=== PATIENT | male | born 1960 | race Caucasian/White ===

== ENCOUNTER 2016-05-13 20:10 | Emergency (ER) ==
[2016-05-13 20:25] VITALS: BP 156/85
--- NOTE | 2016-05-13 20:34 | PROVIDER DOCUMENTATION ---
HPI-Rash/Wound/ReCheck - General Chief Complaint: Suture/Staple Removal Stated Complaint: RECHECK, 05/04/16 Time Seen by Provider: 05/13/16 20:28 Source: patient Allergies/Adverse Reactions: Allergies Allergy/AdvReac Type Severity Reaction Status Date / Time No Known Allergies Allergy Verified 05/04/16 19:12 - History of Present Illness-Dermatology Nature of Presenting Problem: Pt presents today for recheck of finger laceration 5 days ago. Wound healing well. No signs or symptoms of infection. Context/Associated Symptoms: reports: laceration Similar Symptoms Previously?: Yes Recently seen or treated by another doctor?: Yes - Recheck Treated days ago.: 5 Previous Treatment: laceration repair Antibiotics given: prescription Symptoms since procedure:: reports: no complaints Review of Systems - Adult - REVIEW OF SYSTEMS - ADULT Constitutional: reports: no symptoms reported Eyes: reports: no symptoms reported Ears, Nose, Mouth & Throat: reports: no symptoms reported Cardiovascular: reports: no symptoms reported Respiratory: reports: no symptoms reported Gastrointestinal: reports: no symptoms reported Genitourinary: reports: no symptoms reported Musculoskeletal: reports: no symptoms reported Integumentary: reports: see HPI Neurological: reports: no symptoms reported Psychiatric: reports: no symptoms reported Endocrine: reports: no symptoms reported Hematologic/Lymphatic: reports: no symptoms reported Allergic/Immunologic: reports: no symptoms reported All Other Systems: Reviewed and Negative Past History - Adult - PAST MEDICAL HISTORY-ADULT Review of Records: reports: Old Records Reviewed, Nursing Assessment Review, Medications Reviewed, Social history reviewed & non-contributory. Major Childhood Illnesses: reports: denies history Cardiovascular: reports: denies history Respiratory: reports: denies history Gastrointestinal: reports: denies history Obstetrical/Gynecological: reports: denies history Genitourinary: reports: denies history Musculoskeletal: reports: denies history Neurological: reports: denies history Endocrine/Immune: reports: denies history Other Conditions: reports: denies history - IMMUNIZATION STATUS Childhood Immunizations: See Nurse Assessment Flu Vaccine: See Nurse Assessment Physical Exam-General - PHYSICAL EXAM-ADULT Initial Vital Signs Reviewed: Yes - CONSTITUTIONAL General Appearance: appears well, alert, no apparent distress - SKIN Integumentary: laceration(s) (healing well) Progress - PLAN OF CARE/RESULTS Progress/Plan/Lab Results: Vital Signs Temp Pulse Resp BP Pulse Ox 05/13/16 20:23 98.7 F 72 14 156/85 98 No Known Allergies Allergy (Verified 05/04/16 19:12) Cephalexin [Keflex] 500 mg PO Q6HR #28 capsule 05/04/16 Wound healing well. Will have him return in 3-4 days for removal. Departure - Departure Time of Disposition Order: 20:33 DIAGNOSIS: Suture check Disposition: HOME 01 Certified Medical Emergency: Urgent Condition: Good Additional Instructions: Keep clean and dry. Follow up in 3-4 days for removal. ED Follow Up Instructions: You have been treated by a care provider in the Emergency Department. These instructions are being provided to you so you can have an understanding of how to care for yourself upon discharge. Upon discharge from the Emergency Department, you are responsible for making arrangements for follow-up care by a physician of your choice. Take all prescribed medications as directed. Return to the Emergency Department immediately for any new or worsening symptoms. You may call the Physician Referral phone number at [phone] to obtain a list of Physicians who are taking new patients. Attestation - Physician/ Mid-level Attestation Patient care was provided by Mid-level provider (CONTRACTS REPRESENTATIVE/PA):: Yes Mid-level provider:: Ciro Hernandez Mid-level documentation review:: The Mid-level provider documentation, treatment plan and medical decision making was reviewed by the physician who agrees with all treatment and medical decision making by the MLP.
== END 2016-05-13 20:45 | disposition home or self-care (01) ==
LOC: ED 20:10
DX: S61.210D Laceration without foreign body of right index finger without damage to nail, subsequent encounter (principal)
CPT/HCPCS: 99282